=== PATIENT | female | born 1980 | race Caucasian/White ===

== ENCOUNTER 2018-09-11 02:37 | Observation (INO) | payer BC, OTHER ==
[~2018-09-11] VITALS: Ht 149.9 cm; Wt 61.9 kg
--- NOTE | 2018-09-11 06:27 | NUR ---
ADMIT PT TO RM 126 AT 0525 WITH DIAGNOSIS OF CHOLECYSTITIS, TO HAVE CHOLECYSTECTOMY LATER TODAY. HAS HAD ABD OFF AND ON FOR 6 MONTHS AND RECENTLY FOUND TO HAVE GALLSTONES AND WAS AWAITING SURGERY CONSULT WHEN PAIN INCREASED AND CAME TO ED. CURRENTLY DOES NOT HAVE ABD PAIN. WAS HAVING SEVERE PAIN AT IV WHERE POTASSIUM IS INFUSING. PAIN FINALLY RESOLVED WHEN MOVED IVF'S TO R ARM SITE PAUSING PIGGY BACK KCL FOR 10 MIN AND THEN RUNNING WITH MAINTENANCE FLUIDS. IS NOW PAIN FREE. WAS BREIFLY NAUSEATED WHEN IN SEVERE PAIN. HAD ALSO TRIED WARM PACK TO IV SITE WITHOUT RESULTS. DENIES NEED TO VOID AT THIS TIME,STATES VOIDED IN ED. READY TO TAKE NAP.
--- NOTE | 2018-09-11 08:30 | NUR ---
ASSESSMENT COMPLETED. PT VERY PLEASANT, CALM AND COOPERATIVE. SHE DENIES ANY PAIN, N/V, OR SOB. A/O X4, ROOM AIR. CLEAR LUNG SOUNDS. NO ABDOMINAL TENDERNESS. SHE STATES SHE'S PASSING GAS AND HAD HER LAST BM YESTERDAY. HYPOACTIVE BOWEL TONES. SHE IS STRONG AND INDEPENDENT ON HER FEET- HAS AMBULATED TO THE TOILET WITHOUT ANY ISSUES TWICE SINCE BEGINNING OF SHIFT AND VOIDING CLEAR, YELLOW ADEQUATE URINE. LEFT AND RIGHT IV'S WNL. EDUCATION COMPLETED AND PT UPDATED ON PLAN FOR PROCEDURE THIS EVENING (PER DR. PALOMINO). CALL LIGHT WITHIN REACH. WILL CONTINUE TO MONITOR.
--- NOTE | 2018-09-11 09:00 | NUR ---
SCHEDULED MEDICATIONS GIVEN- EDUCATION PROVIDED. PT DENIES ANY NEEDS TO BE MET AT THIS TIME. SHE'S AWARE OF PLAN FOR SURGERY LATER TODAY. CALL LIGHT WITHIN REACH. WILL CONTINUE TO MONITOR.
--- NOTE | 2018-09-11 10:00 | NUR ---
PER PT, SHE'S HAD A BM THIS LAST HOUR. FAMILY MEMBER AT THE BEDSIDE VISITING WITH PT. PT CONTINUES TO HAVE NO PAIN. NO QUESTIONS OR NEEDS TO BE MET. CALL LIGHT WITHIN REACH. WILL CONTINUE TO MONITOR.
--- NOTE | 2018-09-11 11:21 | NUR ---
PT RESTING IN BED WATCHING TV. NO QUESTIONS OR CONCERNS, STILL NO PAIN, NO N/V. CALL LIGHT WITHIN REACH. WILL CONTINUE TO MONITOR.
--- NOTE | 2018-09-11 12:10 | NUR ---
PT RESTING IN BED SITTING WITH FAMILY AT BEDSIDE. REMAINS VERY PLEASANT, CALM AND COOPERATIVE. DR. PALOMINO HAS JUST SEEN THE PT. VS AND CONDITION REMAIN STABLE. NO CHANGES FROM PREVIOUS ASSESSMENT. PT DENIES ANY NEEDS. VERBAL ORDER FROM DR. PALOMINO TO REDRAW POTASSIUM LEVEL ONCE THIS CURRENT BAG OF POTASSIUM FINISHES INFUSING. NO SALES SERVICE PROFESSIONAL ABX ORDERED PT RECEIVED LEVAQUIN THIS AM. CALL LIGHT WITHIN REACH. WILL CONTINUE TO MONITOR.
--- NOTE | 2018-09-11 12:36 | NUR ---
PT LAYING ON R SIDE, WATCHING TV-FAMILY AT BS. ALL I COULD GET OUT OF HER IS THAT PAIN IS OK, NO #. PT INFORMED ME THAT SHE IS TO HAVE MANJINDER SURGERY THIS AFTERNOON. EXTENDED A BLESSING, WILL FOLLOW NEEDED
--- NOTE | 2018-09-11 12:36 | NUR ---
SPOKE WITH STAFF, CHART REVIEWED. PATIENT IS INDEPENDENT AND AT THIS TIME REQUIRES NO CASE MANAGEMENT INTERVENTION. IF SOME ARISE, STAFF WILL PLACE A CONSULT IN. DEFER ASSESSMENT AT THIS TIME.
--- NOTE | 2018-09-11 14:20 | NUR ---
PT'S KCHLOR HAS FINISHED INFUSING AT THIS TIME- I CALLED TRACTOR CRANE OPERATOR AND THEY WILL BE HERE SHORTLY TO REDRAW POTASSIUM. PT RESTING IN BED. SHE STATES HER PRN NORCO HELPED AND SHE NO LONGER HAS A HEADACHE. SHE DENIES ANY NEEDS TO BE MET. UPDATED PT ON HER PLAN TO TRANSFER TO / SOON. CALL LIGHT WITHIN REACH. WILL CONTINUE TO MONITOR.
--- NOTE | 2018-09-11 14:40 | NUR ---
REPORT GIVEN TO RECEIVING RN KADY; PT AMBULATED AT THIS TIME WITH THIS RN AT HER SIDE TO ROOM 107 ON M/S UNIT WITH ALL HER BELONGINGS IN HAND. VS AND CONDITION STABLE PRIOR TO TRANSFER. TRANSFER NOW COMPLETE.
--- NOTE | 2018-09-11 14:45 | NUR ---
PT TRANSFERED FROM CCU. PT AMBULATED DOWN HALLWAY TO ROOM WITH SBA. PT DENIES PAIN AND NAUSEA AT THIS TIME. ASSESSMENT DONE. PIV'S FLUSHED, SALINE LOCKED AND COVERED FOR SHOWER. CHG WIPES PROVIDED FOR PT TO WIPE DOWN AFTER SHOWER. PT VERBALIZES UNDERSTANDING. PT ORIENTED TO ROOM AND DEMONSTRATES USE OF CALL LIGHT IN ROOM AND BATHROOM. FAMILY AT BESIDE. NO ADDITIONAL REQUESTS OR COMPALINTS AT THIS TIME.
--- NOTE | 2018-09-11 16:24 | NUR ---
OR CALLED STATING THEY WILL BE COMING TO GET PT. IV FLUIDS SWITCHED TO OR ORDERS. SCD'S APPLIED. PT REACHES 2500 ON INCENTIVE SPIROMETER. GLASSES REMAIN IN PLACE. PT AND FAMILY STATE ALL THEIR QUESTIONS HAVE BEEN ANSWERED. BED RAILS UP. CALL LIGHT WITHIN REACH. NO ADDITIONAL REQUESTS OR COMPLAINTS AT THIS TIME.
--- NOTE | 2018-09-11 16:46 | NUR ---
OCCUPATIONAL THERAPY MANAGERKRISTINA HOFF CAME TO TAKE PT TO OR. REPORT GIVEN. PT TRANSFERED SELF TO OR STRETCHER. NO REQUESTS OR COMPLAINTS.
--- NOTE | 2018-09-11 18:03 | NUR ---
PT POST OP DAY ZERO FOR LAP MANJINDER. PT REMAINS IN SURGERY AT THIS TIME. PIV X2 IN RIGHT AND LEFT AC. SHOWER TODAY. SCD'S IN PLACE. FAMILY AT BEDSIDE. PT USES CALL LIGHT APPROPRIATLY.
--- NOTE | 2018-09-11 18:28 | NUR ---
09/11/181827 Yulia Dorman 1800: PT ARRIVES TO PACU FROM OR AWAKE OFF AND ON, GRIMACING AND MOANING WITH PAIN. PT RESP EVEN AND UNLABORED, PT ON 7L VIA MASK. PT UNABLE TO STATE PAIN AT THIS TIME. 180: PT CONT TO HAVE PAIN. DISCUSSED WITH FRED RUIZ, IV DILAUDID GIVEN. 1814: PT CONT ON 7L OXYGEN VIA MASK, RESP EVEN AND UNLABORED. PT CONT TO C/O PAIN AND IS ABLE TO RATE PAIN 9/10 AT THIS TIME. MEDICATED FOR PAIN, SEE EMAR. 182: PT RESTING WITH EYES CLOSED, NO LONGER GRIMACING WITH PAIN. PT OPENS EYES AND STATES, "MY MOUTH IS DRY" MASK REMOVED AND PT PROVIDED ICE CHIPS.
--- NOTE | 2018-09-11 19:00 | NUR ---
CHARGE ROUNDING DONE. PATIENT RETURNED FROM PACU. PRIMARY RN IN ROOM. FAMILY AT BEDSIDE.
--- NOTE | 2018-09-11 19:10 | NUR ---
PATIENT ARRIVED TO THE FLOOR VIA STRETCHER. PATIENT WAS ABLE TO SCOOT ACROSS TO THE BED WITH NO ASSISTANCE. PATIENT DENIES NAUSEA. PATIENT GIVEN JELLO AND ICE WATER. VITALS TAKEN. PATIENTS SO IS IN THE ROOM. SCRIPT GIVEN TO SO TO TURN INTO PHARMACY. NO NEEDS NOTED. CALL LIGHT IN REACH.
--- NOTE | 2018-09-11 20:06 | NUR ---
ASSESMENT COMPLETED. PATIENT GIVEN PRN PAIN MEDICATION PER ORDER. PATIENT RATES PAIN AT AN 8/10. PATIENT TOLERATED JELLO AND DENIES ANY NAUSEA. CALL LIGHT IN REACH. IV INFUSING.
--- NOTE | 2018-09-11 20:25 | NUR ---
PATIENTS VITALS TAKEN AND RECORDED. PATIENT RATES PAIN AT A 5/10. PATIENT DENIES ANY NAUSEA. PATIENT WAS ABLE TO TOLERATE MORE JELLO. NO FURTHER NEEDS. NOTED.
--- NOTE | 2018-09-11 21:15 | NUR ---
VITALS TAKEN AND RECORDED. PATIENT RATES PAIN AT A 5/10. PATIENT DENIES ANY NAUSEA. PATIENT IS RESTING IN BED PLAYING ON CELLPHONE. FAMILY IN THE ROOM. PATIENT WAS ABLE TO VOID. SCRIPT FILLED BY SO. NO FURTHER NEEDS NOTED. CALL LIGHT IN REACH.
--- NOTE | 2018-09-11 21:39 | NUR ---
PT CONTINUES TO COMPLAIN OF 8/10 PAIN, VISITING WITH FAMILY IN ROOM, LAST PAIN MEDS APPROX HOUR AGO. DISCUSSED PT PAIN CONTROL, HAS STAIRS TO WALK UP TO GET TO BED, SUGGESTED PILLOW SUPPORT, PT REQUESTED TO HAVE DC PAPERS READY. DENIES NAUSEA.
--- NOTE | 2018-09-11 22:24 | NUR ---
PATIENT IS RESTING IN BED WITH EYES CLOSED WHEN ROOM WAS ENTERED. PATIENT AWOKEN. PATIENTS VITALS TAKEN AND RECORDED. PATIENT RATES PAIN AT A 4/10. PATIENT DENIES ANY NEEDS. CALL LIGHT IN REACH.
--- NOTE | 2018-09-11 22:35 | NUR ---
REVIEWED DC INSTRUCTIONS WITH PATIENT AND HER FAMILY. ALL QUESTIONS ANSWERED. VERABL AND WRITTEN INSTRUCTIONS PROVIDED. CAD DESIGNER DRAFTER IN ROOM TO REMOVE IV SITE.
--- NOTE | 2018-09-11 22:47 | NUR ---
PATIENTS IV REMOVED X2. PATIENTS DISCHARGE INSTRUCTIONS AND PAPERWORK COMPLETED BY TEAM OTR TRUCK DRIVER. PATIENT DENIES ANY COMMENTS, QUESTIONS OR CONCERNS. VITALS TAKEN AND RECORDED. PATIENT ESCORTED OUT BY CHARBEL ACEVEDO.
--- NOTE | 2018-09-12 06:11 | OR ---
[facility] [address] [place], [place] [address] Signed DATE OF OPERATION: 09/11/2018 SURGEON: Juan J Palomino MD PREOPERATIVE DIAGNOSIS: Chronic cholecystitis with cholelithiasis. POSTOPERATIVE DIAGNOSES: 1. Chronic cholecystitis with cholelithiasis. 2. Cholesterolosis. PROCEDURE: Laparoscopic cholecystectomy with intraoperative cholangiogram. ESTIMATED BLOOD LOSS: Minimal. FINDINGS: The contrast flowed readily through the bile duct into the duodenum. There may have been a filling defect in the distal common bile duct. INDICATIONS: Carmela is a 38-year-old female who is otherwise healthy and at her ideal body weight. She has had trouble with right upper quadrant abdominal pain radiating through to her back. She had an outpatient ultrasound and she was told she had a gallstone present. Last night, she had a severe attack and ended up in the emergency room. They called me at 4:30 this morning and so we admitted Carmela as above. She has been on Levaquin, Flagyl, heparin, IV fluids and pain medication. I met with Carmela and her mom earlier today. I have known Carmela's mom for quite some time. I reviewed with Carmela and her mother the location and function of the gallbladder. We discussed laparoscopic versus open cholecystectomy. They understand the expected intraop and postop course. There is risk of surgery including, but not limited to bleeding, infection, scarring, change in contour of the skin, damage to bowel, damage to main bile duct, and incisional hernias. She had expressed understanding and wished to proceed. PROCEDURE NOTE: Carmela was taken into our operating room and placed in a supine position under general endotracheal tube anesthesia. She was on preoperative antibiotics along with subcutaneous heparin. SCDs were utilized. She was then prepped and draped in the usual sterile fashion. All trocars were placed in usual positions under direct visualization Portions of this report were created using voice recognition software. There may be inadvertent computer error. Please read with context in mind. If there are any questions, please contact me. Electronically Signed By: JUAN J PALOMINO MD 09/12/18 0611 PATIENT NAME: CARMELA CHANG OPERATIVE REPORT DATE OF : 80 REPORT #: [id number] PHYSICIAN: JUAN J PALOMINO MD PCP: NO PRIMARY CARE PHYSICIAN REPORT IS CONFIDENTIAL AND NOT TO BE RELEASED WITHOUT AUTHORIZATION [facility] [address] [place], [place] [address] Signed of camera without difficulty. The gallbladder was grasped and elevated in the right upper quadrant. She did have some omentum adherent to the length of the gallbladder. It took just a few minutes to take down the omentum with the help of the cautery. The triangle of Calot was dissected free and we placed a clip on the cystic artery and it was divided. The intraoperative cholangiocatheter was inserted into the cystic duct. The intraoperative cholangiogram was performed. The cystic duct stump was then secured with a PDS Endoloop and 2 clips were placed across the cystic duct stump to charbel its location. After this, the gallbladder was removed from the gallbladder fossa with the help of the cautery and placed into the EndoCatch bag. We could see that she did have some edema in the gallbladder wall and a little bit of thickness. After this, the right upper quadrant was irrigated and suctioned out until clear. We used our laparoscopic suturing device to pass 0 Vicryl suture on either side of the fascia of the subxiphoid trocar site. This was tied down to close this fascia primarily. After this, all the gas was allowed to escape and all the trocars were removed along with the gallbladder. The gallbladder was opened on our back table by our circulating nurse. It had moderate to severe cholesterolosis and a single 5 to 6 mm yellow cholesterol stone. After this, the fascia of the supraumbilical trocar site was closed with interrupted simple and [id number] 0 Vicryl sutures. Local anesthetic was injected into all trocar sites. Each trocar site was then irrigated and suctioned out until clear. The skin and dermis of each trocar site were closed with interrupted 3-0 subcuticular Monocryl sutures. Dry gauze and tape were applied to all incisions. Carmela was then awakened from her anesthesia, extubated in the OR, and taken to recovery room in stable condition. Juan J Palomino MD ALB/MODL /[id number] cc: MD Juan J Kumar MD Copies: Wilber VALVERDE MD Portions of this report were created using voice recognition software. There may be inadvertent computer error. Please read with context in mind. If there are any questions, please contact me. Electronically Signed By: JUAN J PALOMINO MD 09/12/18 0611 PATIENT NAME: CARMELA CHANG OPERATIVE REPORT DATE OF : 80 REPORT #: [id number] PHYSICIAN: JUAN J PALOMINO MD PCP: NO PRIMARY CARE PHYSICIAN REPORT IS CONFIDENTIAL AND NOT TO BE RELEASED WITHOUT AUTHORIZATION [facility] [address] [place], [place] [address] Signed JUAN J PALOMINO MD ~ Portions of this report were created using voice recognition software. There may be inadvertent computer error. Please read with context in mind. If there are any questions, please contact me. Electronically Signed By: JUAN J PALOMINO MD 09/12/18 0611 PATIENT NAME: CARMELA CHANG OPERATIVE REPORT DATE OF : 80 REPORT #: [id number] PHYSICIAN: JUAN J PALOMINO MD PCP: NO PRIMARY CARE PHYSICIAN REPORT IS CONFIDENTIAL AND NOT TO BE RELEASED WITHOUT AUTHORIZATION
--- NOTE | 2018-09-12 06:11 | CONS ---
[facility] [address] [place], [place] [address] Signed DATE OF CONSULTATION: 09/11/2018 CHIEF COMPLAINT: Right upper quadrant abdominal pain. HISTORY OF PRESENT ILLNESS: Carmela is a 38-year-old lady who is otherwise quite healthy and with 2 children. She has had trouble over the last several years with right upper quadrant abdominal pain radiating through to her back. She had been to the [facility] within the last couple of weeks and she knows she has a gallstone. She had a severe attack yesterday and came into the emergency room for evaluation. I was called at 4:30 am this morning and so we admitted her overnight. She has been given IV fluids, pain control, and antibiotics. Overall, she says she is feeling much better. Her mother is with her today. PAST MEDICAL HISTORY: None. PAST SURGICAL HISTORY: None. SOCIAL HISTORY: She does not smoke or drink. Her friend is Masood Dockery at [phone]. She has 2 children born vaginally. 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 She had been over to [facility] and had seen Dr. Koroma. FAMILY HISTORY: None. REVIEW OF SYSTEMS: She had 10 systems reviewed and they were all negative. ALLERGIES: None. MEDICATIONS: None. PHYSICAL EXAMINATION: VITAL SIGNS: Her blood pressure is 92/45, her heart rate is 72, respiratory rate is 14, temperature is 97.9 degrees. She is 99% on room air. She is 4 feet and 11 inches and 61 kg. Portions of this report were created using voice recognition software. There may be inadvertent computer error. Please read with context in mind. If there are any questions, please contact me. Electronically Signed By: JUAN J PALOMINO MD 09/12/18 0611 PATIENT NAME: CARMELA CHANG CONSULTATION DATE OF : 80 REPORT #: [id number] PHYSICIAN: JUAN J PALOMINO MD PCP: NO PRIMARY CARE PHYSICIAN REPORT IS CONFIDENTIAL AND NOT TO BE RELEASED WITHOUT AUTHORIZATION [facility] [address] [place], [place] [address] Signed GENERAL: Carmela is a 38-year-old female, who is lying supine in her hospital bed, watching TV. Her mother is at the bedside. I have known her mother for many years. She does not appear systemically ill or toxic. She is not jaundiced. She is not in any pain. LUNGS: Clear to auscultation bilaterally. HEART: Regular rate and rhythm. ABDOMEN: Soft and flat with some mild tenderness in the right upper quadrant. LABORATORY DATA: Her white blood cell count is 8.8, neutrophils 84. Potassium is 3.1. UA negative. Total bilirubin 0.8, AST 43, ALT 17, alkaline phosphatase 75, lipase 25. Beta-hCG negative. RADIOGRAPHIC STUDIES: An ultrasound of the right upper quadrant was repeated. She does have a single 7 mm stone in the gallbladder. The common bile duct is unremarkable. She had gallbladder wall is not thickened. There is no pericholecystic fluid. ASSESSMENT/PLAN: Carmela is a 38-year-old female who presents with symptomatic cholelithiasis and chronic cholecystitis. She has been given IV fluids, antibiotics, and pain control. I reviewed with her the above findings. We reviewed the location of function of the gallbladder. We reviewed laparoscopic versus open cholecystectomy. She also understands expected intraop and postop course. There is risk of surgery including, but not limited to bleeding, infection, scarring, change in contour of the skin, damage to the bowel, damage to main bile duct, incisional hernias, and other unforeseen comorbidities. She has expressed understanding would like to proceed with surgery later today. Juan J Palomino MD ALB/MODL /[id number] cc: MD Juan J Kumar MD Portions of this report were created using voice recognition software. There may be inadvertent computer error. Please read with context in mind. If there are any questions, please contact me. Electronically Signed By: JUAN J PALOMINO MD 09/12/18 0611 PATIENT NAME: CARMELA CHANG Fernando CONSULTATION DATE OF : 80 REPORT #: [id number] PHYSICIAN: JUAN J PALOMINO MD PCP: NO PRIMARY CARE PHYSICIAN REPORT IS CONFIDENTIAL AND NOT TO BE RELEASED WITHOUT AUTHORIZATION [facility] [address] [place], [place] [address] Signed Copies: Wilber KOROMA MD, ANDREW L MD ~ Portions of this report were created using voice recognition software. There may be inadvertent computer error. Please read with context in mind. If there are any questions, please contact me. Electronically Signed By: JUAN J PALOMINO MD 09/12/18 0611 PATIENT NAME: CARMELA CHANG CONSULTATION DATE OF : 80 REPORT #: [id number] PHYSICIAN: JUAN J PALOMINO MD PCP: NO PRIMARY CARE PHYSICIAN REPORT IS CONFIDENTIAL AND NOT TO BE RELEASED WITHOUT AUTHORIZATION
== END 2018-09-11 22:48 | disposition home or self-care (01) ==
LOC: ED 02:37 → CCU 02:38 → ED 05:14 → CCU 05:14 → MS 14:45
PROVIDERS: ADMIT Colon & Rectal Surgery
PROC: BF101ZZ Fluoroscopy of Bile Ducts using Low Osmolar Contrast (ICD-10-PCS; 2018-09-11)
PROC: 0FT44ZZ Resection of Gallbladder, Percutaneous Endoscopic Approach (ICD-10-PCS; principal; 2018-09-11 17:00)
DX: K80.10 Calculus of gallbladder with chronic cholecystitis without obstruction (principal)
CPT/HCPCS: 00790; 36415; 74300; 76705; 80048; 80053; 81001; 83690; 84703; 85025; 96368; 96372; 96375; 96376; 99285-25; C9113; G0378; J0330; J1100; J1170; J1644; J1885; J1956; J2250; J2405; J2704; J2765; J3010; J3480; J7060; J7120; Q9967

== ENCOUNTER 2018-10-02 10:50 | Emergency (ER) | payer BC, OTHER ==
[~2018-10-02] VITALS: Ht 149.9 cm; Wt 61.9 kg
--- OUTSIDE RECORDS SUMMARY | 2018-10-02 10:54 | XMS ---
PreManage Notification: NAYAN CHANG Security Scale Manager Events No recent Security Events currently on file CRITERIA MET - [facility] - [facility] - 2 Visits in 30 Days CARE PROVIDERS There are no care providers on record at this time. Laurent has no Care Guidelines for this patient. Juanjose VISIT COUNT (12 MO[address] [facility] [address] [facility] TOTAL 2 NOTE: Visits indicate total known visits. ED/C VISIT TRACKING (12 MO.) 10/02/2018 10:51 [facility] TYPE: Emergency COMPLAINT: - ABD PAIN 09/11/2018 02:37 [facility] TYPE: Emergency COMPLAINT: - CHOLECYSTITIS INPATIENT VISIT TRACKING (12 MO.) 09/11/2018 02:38 [facility] TYPE: Medical Surgical COMPLAINT: - CHOLECYSTITIS DIAGNOSES: - Calculus of gallbladder with chronic cholecystitis without obstruction - Epigastric pain [email or web address]
[2018-10-02] MEDS ORDERED: NORCO 5-325 TA1 EACH PO (11:06)
== END 2018-10-02 14:13 | disposition short-term general hospital (02) ==
LOC: ED 10:50
DX: K80.50 Calculus of bile duct without cholangitis or cholecystitis without obstruction (principal); Z79.899 Other long term (current) drug therapy
CPT/HCPCS: 74177; 80053; 81001; 83690; 84703; 85025; 96361; 99284-25; C9113; J1170; J1200; J1956; J2270; J2405; J2765; J7030; Q9967